=== PATIENT | male | born 1955 | race Caucasian/White ===

== ENCOUNTER 2021-01-25 11:15 | Outpatient (RCR) | payer MEDICARE, OTHER, SELFPAY ==
[2021-01-25] MEDS: COVID-19 VACC, MRNA(PFIZER)/PF 30 MCG/0.3 ML SYRINGE IM (18:38)
[2021-02-15] MEDS: COVID-19 VACC, MRNA(PFIZER)/PF 30 MCG/0.3 ML SYRINGE IM (17:57)
== END 2021-05-01 23:59 ==
LOC: IMMUN 11:15
PROVIDERS: Visit Provider Family Medicine
DX: Z23 Encounter for immunization (principal)
CPT/HCPCS: 0001A; 0002A; 91300

== ENCOUNTER 2021-02-12 11:27 | Observation (INO) | payer MEDICARE, OTHER, SELFPAY ==
[2021-02-12] VITALS (12 sets, daily range): BP systolic 117–154; BP diastolic 63–94; PULSE 53–90; RESP 14–20; TEMP 36.3–36.8; O2SAT 94–100; BMI 25.7; BMI 26.6; BMI 26.7
--- NOTE | 2021-02-12 11:42 | EKG12_ITS ---
Test Reason : NUMB/TINGLING Blood Pressure : / mmHG Vent. Rate : 058 BPM Atrial Rate : 058 BPM P-R Int : 148 ms QRS Dur : 102 ms QT Int : 424 ms P-R-T Axes : 046 006 035 degrees QTc Int : 416 ms Sinus bradycardia Otherwise normal ECG Confirmed by APURVA ANDINO, TRAVON ([id number]), magazine editor SIMBA MILLER ([id number]) on 02/15/2021 12:28:49 PM Referred By: JUNIOR Confirmed By:OBDULIA MIXON MD
--- NOTE | 2021-02-12 11:43 | CT_ITS ---
STUDY: CTA HEAD AND NECK WITH CONTRAST REASON FOR EXAM: Male, 65 years old. Neuro deficit, acute, stroke suspected, R leg weak RADIATION DOSAGE (If Supplied By Facility): CTDIvol = ( 21.52 ) mGy, DLP = ( 712.92 ) mGycm TECHNIQUE: CT angiography was performed with a multi-detector CT scanner. Data acquisition was obtained from the skull base through the vertex following intravenous administration of IV 100mL Isovue-370. MIP images were reconstructed from the axial data set. Post-processing of the angiographic images was performed, with multiplanar reformation and 3D reconstruction. Individualized dose optimization techniques were used for this CT. COMPARISON: No relevant priors. FINDINGS: Normal bilateral petrous carotid arteries. There is calcified plaque formation of the right cavernous carotid artery, without a cross-sectional luminal stenosis. There is calcified plaque formation of the left cavernous carotid artery, without a cross-sectional luminal stenosis. Normal right A1 segments of the anterior cerebral artery. Normal left A1 segments of the anterior cerebral artery. Normal intact anterior communicating artery (ACOM). Normal bilateral A2 segments of the anterior cerebral arteries. Normal right M1 and M2 segments of the middle cerebral arteries, with a normal M1 bifurcation. Normal left M1 and M2 segments of the middle cerebral arteries, with a normal M1 bifurcation. Normal right posterior communicating artery (PCOM). Normal left posterior communicating artery (PCOM). Normal bilateral vertebral arteries. Normal basilar artery with a normal basilar bifurcation. The visualized bilateral superior cerebellar (SCA) arteries are normal. Normal bilateral P1, P2 and visualized P3 segments of the posterior cerebral arteries. There is no demonstrated aneurysm of the [place]. AORTIC ARCH: There is atherosclerotic calcific plaque formation of the aortic arch and great vessels arising from the aortic arch, without a hemodynamically significant stenosis. There is a normal origin of the brachiocephalic, left common carotid, and left subclavian arteries. RIGHT CAROTID ARTERIES: Normal right common carotid artery (CCA). There is mild atherosclerotic plaque formation with minimal narrowing of the right carotid bulb. Normal origin of the right internal carotid (ICA) artery without a hemodynamically significant stenosis. Normal visualized cervical portion of the right internal carotid artery. Normal origin of the right external carotid artery (ECA). LEFT CAROTID ARTERIES: Normal left common carotid artery (CCA). Normal left common carotid bulb. There is minimal atherosclerotic plaque formation of the origin of the left internal carotid artery with less than 50% cross sectional diameter stenosis. Normal visualized cervical portion of the left internal carotid artery. Normal origin of the left external carotid artery (ECA). VERTEBRAL ARTERIES: There is enhancement within the bilateral vertebral arteries with a small right vertebral artery, and a dominant left vertebral artery. CT/STROKE CTA Head AND Neck W/Con IMPRESSION: Minimal plaque at the right carotid bulb and origin of the left internal carotid artery. N.B. : The above information has been verbally conveyed by Scott Claudio MD to Lucio Polancoren on 02/12/2021 13:26:52 (ET). Electronically Signed: Scott Claudio MD at 13:27 EDT , Service support ,
--- NOTE | 2021-02-12 11:49 | ED.VISSUMM ---
- ER Visit Summary Date of Service: 02/12/21 Chief Complaint: Right leg weakness History of Present Illness: The patient is a 65 M who goes to [facility]. He reports that he has weakness in his right leg that began 4 days ago. States that he has been driving it to walk. Is actually off balance and has fallen 3 times. He denies any injury or loss of consciousness. Denies any neck pain. Patient reports that he does not notice some mild weakness in his right arm. He denies any paresthesias. No change in his speech. He denies any vertigo. His review of systems is otherwise negative. Physical Examination: Vitals: Stable. Afebrile. General: Well-nourished and well-developed. Head: Normocephalic atraumatic. Neck: Supple, no lymphadenopathy. No JVD. Nontender. Cardiovascular: Regular rate and rhythm. No murmurs. Respiratory: No respiratory distress. Clear to auscultation bilaterally. Abdominal: Soft, nontender, nondistended, normal bowel sounds. No guarding, rebound, or peritoneal signs. Back: Nontender. Extremities: Nontender, no edema. Skin: Normal color, no rash. Neurologic: Alert and oriented ?3. Cranial nerves II through XII are intact. 4 out of 5 strength right lower extremity. NIH scale is 2. Psych: Normal affect. Test Results: EKG is sinus bradycardia at [address] changes. Troponin 0 0.049. INR is 1.1. Chem-7 shows a BUN 23, creatinine 1.36, glucose 173. CBC shows stable neutrophils 85 lymphocytes of 11. Clinical Impression(s) from Imaging Studies Head/Neck CTA 02/12/21 11:43 IMPRESSION: Minimal plaque at the right carotid bulb and origin of the left internal carotid artery. N.B. : The above information has been verbally conveyed by Scott Claudio MD to Lucio [facility] on 02/12/2021 13:26:52 (ET). Electronically Signed: Scott Claudio MD at 13:27 EDT , Service support , ADDENDUM: 02/12/21 1334 IMPRESSION: Minimal plaque at the right carotid bulb and origin of the left internal carotid artery. N.B. : The above information has been verbally conveyed by Scott Claudio MD to Lucio Marleyfgren on 02/12/2021 13:26:52 (ET). Electronically Signed: Scott Claudio MD at 13:27 EDT , Service support , Brain CT 02/12/21 12:15 IMPRESSION: Small areas of decreased attenuation in the left basal ganglion as well as the body and tail of the left caudate nucleus. I cannot exclude acute change. Correlation with MRI is recommended. N.B. : The above information has been verbally conveyed by Scott Claudio MD to Lucio Jose on 02/12/2021 12:33:45 (ET). Electronically Signed: Scott Claudio MD at 12:35 EDT , Service support , ADDENDUM: 02/12/21 1242 IMPRESSION: Small areas of decreased attenuation in the left basal ganglion as well as the body and tail of the left caudate nucleus. I cannot exclude acute change. Correlation with MRI is recommended. N.B. : The above information has been verbally conveyed by Scott Claudio MD to Lucio Marleyfgren on 02/12/2021 12:33:45 (ET). Electronically Signed: Scott Claudio MD at 12:35 EDT , Service support , Chest X-Ray 02/12/21 12:15 IMPRESSION: No acute abnormality is seen. Electronically Signed: Scott Claudio MD at 12:25 EDT , Service support , Emergency Department Course and Treatment: Patient symptoms began 4 days ago. He is not a TPA candidate. Treatment Plan: Patient was discussed with Dr. White. He will be admitted to the hospital for further evaluation and treatment. Disposition: Admitted in stable condition. Impression: 1. CVA. 2. Renal insufficiency. 3. Indeterminate troponin. 4. Sinus bradycardia. This note was generated with [employer] dictation software. It may contain incorrect words, spelling, and punctuation that were not noted in review of the chart prior to signing ED Disposition - Plan for ED Patient: Referrals: Care Physician,No Primary [Primary Care Provider] -
[2021-02-12] MEDS: 0.9% Normal Saline 1,000 ML 100 ML IV (12:01)
[2021-02-12 12:12] LABS: Absolute Lymphocyte Count 0.89 X10^3/uL (0.83-4.51); Basophil# 0.06 X10^3/uL; Basophil% 0.7 % (0-1); Eosinophil# 0.01 X10^3/uL; Eosinophils% 0.1 % (0-5); Hematocrit 46.8 % (40-54); Hemoglobin 15.9 g/dL (13.0-16.5); Lymphocyte # 0.89 X10^3/ul (4.0); Lymphocyte % 10.9 % (19-41); Mean Corpuscular Volume 85.2 fL (80-94); Mean Platelet Vol. 10.3 fl (6.2-12.0); Monocyte# 0.26 X10^3/uL; Monocyte% 3.2 % (0-10); NRBC Flagged by Analyzer 0 % (0-5); Neutrophil # 6.96 X10^3/uL (2.7-7.7); Neutrophil % 84.9 % (47-70); Platelet Count 273 K/mm3 (150-450); RBC Distribution Width CV 13.2 % (11.6-14.6); RBC Distribution Width SD 40.9 fl (35.1-43.9); Red Blood Count 5.49 M/mm3 (4.6-6.2); White Blood Count 8.2 K/mm3 (4.4-11.0)
--- NOTE | 2021-02-12 12:15 | RAD_ITS ---
STUDY: X-RAY CHEST REASON FOR EXAM: Male, 65 years old. Neuro deficit, acute, stroke suspected TECHNIQUE: Single AP portable view of the chest. COMPARISON: None. FINDINGS: EKG electrodes are seen. The lungs are clear and expanded. There is no demonstrated pleural abnormality. Normal size heart. Normal mediastinum and uzair. Normal visualized pulmonary arteries. There is atherosclerotic tortuosity of the aortic arch and descending thoracic aorta. There are diffuse degenerative changes of the visualized thoracic spine. Normal visualized ribs, clavicles, and shoulders. There is no demonstrated abnormality of the visualized soft tissue structures of the upper abdomen. RAD/Chest 1 View IMPRESSION: No acute abnormality is seen. Electronically Signed: Scott Claudio MD at 12:25 EDT , Service support ,
--- NOTE | 2021-02-12 12:15 | CT_ITS ---
STUDY: CT HEAD STROKE PROTOCOL W/O CONTRAST INJECTION REASON FOR EXAM: Male, 65 years old. STROKE RADIATION DOSAGE (If Supplied By Facility): CTDIvol = ( 44.99 ) mGy, DLP = ( 796.11 ) mGycm TECHNIQUE: Transaxial CT imaging of the brain was performed without administration of intravenous contrast material. Individualized dose optimization techniques were used for this CT. COMPARISON: No relevant priors. FINDINGS: Normal soft tissue structures. Normal calvarium. There is mild cerebral atrophy with widening of the extra-axial spaces and ventricular dilatation. Normal white matter tracts of the cerebral hemispheres. Several areas of decreased attenuation in the left basal ganglion as well as in the tibial portion of the left caudate nucleus. The exact age of the insult cannot be determined on a single examination. Correlation with MRI is recommended. Normal brainstem. Normal cerebellum. There is no intracranial hemorrhage. There are no findings of an acute ischemic infarction. Atherosclerotic calcification of the cavernous portions of the internal carotid arteries bilaterally. Normal visualized paranasal sinuses. CT/STROKE Brain/Head without Cont IMPRESSION: Small areas of decreased attenuation in the left basal ganglion as well as the body and tail of the left caudate nucleus. I cannot exclude acute change. Correlation with MRI is recommended. N.B. : The above information has been verbally conveyed by Scott Claudio MD to Lucio Marleyfgren on 02/12/2021 12:33:45 (ET). Electronically Signed: Scott Claudio MD at 12:35 EDT , Service support ,
[2021-02-12 12:21] LABS: International Normalized Ratio 1.1; Prothrombin Time (Protime)PT. 13.3 SECONDS (11.7-14.9)
[2021-02-12 12:22] LABS: Partial Thromboplast Time 24.6 Seconds (24.1-36.2)
[2021-02-12 12:30] LABS: Anion Gap 8 (5-15); BUN 23 mg/dL (7-18); BUN/Creat Ratio 16.9 RATIO (10-20); Calcium,Total 8.8 mg/dL (8.5-10.1); Chloride 107 mmol/L (98-107); Creatinine, Serum 1.36 mg/dL (0.70-1.30); EST Glomerular Filtration Rate 55 mL/min (>60); Est Glom Filt Rate - Afr Amer 67 mL/min (>60); Estimated Creatinine Clearance 61.28 ml/min; Glucose 173 mg/dL (74-106); Potassium 3.9 mmol/L (3.5-5.1); Sodium Level 139 mmol/L (136-145)
--- NOTE | 2021-02-12 14:23 | ECHOCS_ITS ---
Reason For Study: TIA/CVA Procedure This was a 2D Doppler, Color Flow transthoracic echocardiogram. The study was technically difficult. Contrast injection was performed. Exam performed portable in patient room. Left Ventricle Normal LV size. Mild concentric left ventricular hypertrophy. Left ventricular systolic function is normal. Stage 1 diastolic dysfunction. No regional wall motion abnormalities noted. Right Ventricle Normal RV size. Normal systolic function. Atria Normal left atrium. Normal right atrium. Bubble contrast study negative for right to left interatrial shunt. Mitral Valve Normal mitral valve. Tricuspid Valve Normal tricuspid valve. Aortic Valve Trisinus/trileaflet aortic valve. Mild focal aortic valve calcification. Mild (1+) aortic valve insufficiency. Pulmonic Valve Normal pulmonic valve. Trivial pulmonic valve insufficiency. Great Vessels Mild to moderately dilated aortic root. The pulmonary artery is normal size. Normal inferior vena cava. Pericardium/Pleural No pericardial effusion. Medication Diluted definity 4ml given slow IV push to enhance endocardial definition. Performed a rapid injection of agitated mix of 9 cc saline and 1cc air to assess for atrial septal defect. MMode/2D Measurements & Calculations LVIDd: 4.7 cm IVSd: 1.2 cm Ao root diam: 4.2 cm LVIDs: 3.0 cm LVPWd: 1.1 cm LA dimension: 3.8 cm FS: 35.6 % LAV(MOD-bp): 46.6 ml LA A4 area: 15.6 cm2 RA A4 area: 15.6 cm2 LAV(MOD-bp) Indexed: 21.4 ml/m2 LAV(MOD-sp2): 54.8 ml LAV(MOD-sp4): 38.8 ml Time Measurements MV dec time: 0.34 sec Doppler Measurements & Calculations MV E max bartolo: 60.2 cm/sec Lat Peak E' Bartolo: 9.9 cm/sec Med Peak E' Bartolo: 9.4 cm/sec MV A max bartolo: 69.2 cm/sec E/E' lat: 6.1 E/E' med: 6.4 MV E/A: 0.87 MV V2 max: 70.6 cm/sec MV P1/2t max bartolo: 69.6 cm/sec Ao V2 max: 157.3 cm/sec MV max P.0 mmHg MV P1/2t: 100.0 msec Ao max P.9 mmHg MV V2 mean: 39.1 cm/sec MV dec slope: 203.8 cm/sec2 MV mean P.72 mmHg MV V2 VTI: 29.2 cm MVA(P1/2t): 2.2 cm2 LV V1 max: 101.4 cm/sec PA V2 max: 101.1 cm/sec PI end-d bartolo: 90.5 cm/sec LV V1 max P.1 mmHg Interpretation Summary Normal LV size. Mild concentric left ventricular hypertrophy. Left ventricular systolic function is normal. Stage 1 diastolic dysfunction. Bubble contrast study negative for right to left interatrial shunt. Ordering Physician: Wei White Referring Physician: No PCP Performed By: Alexandru Leyva RCS
--- NOTE | 2021-02-12 14:23 | MRI_ITS ---
STUDY: MRI BRAIN WITHOUT CONTRAST REASON FOR EXAM: Male, 65 years old. Neuro deficit, acute, stroke suspected, R leg weak TECHNIQUE: Standardized multiplanar fat and water weighted pulse sequences were obtained. COMPARISON: Head CT dated February 12, 2021 FINDINGS: Small acute infarct is present in the posterior limb of the left internal capsule extending superiorly into the periventricular white matter. There is mild cerebral atrophy with widening of the extra-axial spaces and ventricular dilatation. There are a limited number of small white matter hyperintensities, distributed throughout the deep white matter tracts of the cerebral hemispheres, consistent with mild chronic white matter ischemic changes. Normal T2* images of the brain without demonstrated susceptibility artifact. There is no demonstrated hemosiderin stain. Normal bilateral basal ganglia. Normal thalami. There is no extra-axial fluid accumulation. Normal flow voids within the major intracranial circulation suggesting patency by spin echo criteria. Normal sella turcica, pituitary gland, infundibular stalk, optic chiasm and hypothalamus. Normal tectal plate and pineal gland. Normal midbrain, clovis and medulla. Normal cerebellum. Normal basal cisterns. Normal bilateral temporal bones. Normal bilateral internal auditory canals. No demonstrated orbital abnormality, within the constraints of a routine brain study. Normal visualized paranasal sinuses. Normal calvarium and skull base. Normal visualized soft tissue structures. Normal visualized upper cervical spine. MRI/Brain without Contrast IMPRESSION: 1. Small acute infarct of the posterior limb of the left internal capsule extending superiorly into the periventricular white matter. Electronically Signed: Hayden Villa MD at 16:33 EDT , Service support ,
[2021-02-12] MEDS: Enoxaparin 40 MG/0.4 ML Syringe SC (15:19)
[2021-02-12] MEDS: Clopidogrel Bisulfate 75 MG Tablet PO (15:19)
--- NOTE | 2021-02-12 18:12 | HP.PCM_ITS ---
Problem List (1) Right leg weakness Status: Acute History of Present Illness Date of Admission: 02/12/21 Chief Complaint: Right leg weakness x5 days The patient is a 65 year old M who was seen in the emergency room at [facility] with a chief complaint of right leg weakness and some right upper extremity weakness since last . Patient was seen in the emergency room at [facility] last Friday for these complaints and was told that he probably had degenerative disc disease of the lumbar spine and he was placed on prednisone and Flexeril, patient continued to have difficulty with right leg weakness and had a hard time picking up his foot while he was walking. He came to the ER at [facility] today for further evaluation. Patient denied any speech difficulties or any visual difficulties and he denied any left-sided weakness. Work-up in the emergency room included labs which revealed a normal CBC, creatinine was slightly elevated at 1.36, BUN was 23, glucose was 173, and troponin was 0.049. Patient underwent imaging studies including a CT of the brain which showed evidence of decreased attenuation in the left basal ganglia and in the body and tail of the left caudate nucleus-a stroke cannot be excluded. Patient's CTA of the head neck was unremarkable. Patient was placed in observation status on PCU for acute stroke, he will undergo an MRI of the brain today, he will be placed on Plavix and aspirin as well as a statin. Patient will be seen by PT and OT and will have an echocardiogram performed. Past Medical History Allergies No Known Allergies Allergy (Verified 02/12/21 11:31) Home Medications: Ambulatory Orders Medication Instructions Recorded Aspirin [Adult Aspirin Regimen] 81 mg PO DAILY 02/12/21 Cetirizine HCl [Zyrtec] 10 mg PO DAILY 02/12/21 Cyclobenzaprine HCl 5 mg PO BID 02/12/21 Omeprazole 20 mg PO DAILY 02/12/21 Prednisone 50 mg PO DAILY 02/12/21 Surgical History: cataract, herniorrhaphy, tonsillectomy Psychiatric History: No pertinent psych hx Lives: Spouse/ Significant Other Smoking Status: Former smoker Tobacco Use: Cigarettes, Cigars, Pipe Alcohol: None Drugs: None - *Family History Maternal History Items: Diabetes Paternal History Items: - - Cirrhosis Review of Systems Constitutional: Denies: Anorexia, Chills, Fever, Night Sweats, Malaise, Weakness, Weight Change, Fatigue Eyes: Denies: Cataracts, Conjunctivae Inflammation, Double vision, Drainage HEENT: Denies: Difficulty Swallowing, Dysphasia, Ear Pain, Eye Pain, Hearing Changes, Nasal bleeding, Nasal Congestion, Post Nasal Drip Cardiovascular: Denies: Chest Pain, Claudication, Chest Pressure, Chest Tightness, Edema, Heaviness, Palpitations Respiratory: Denies: Cough, Hemoptysis, Pleuritic Pain, Shortness of Breath, Shortness of breath at rest, Shortness of breath upon exertion Gastrointestinal: Denies: Abdominal Pain, Constipation, Diarrhea, Hematemesis, Hematochezia, Nausea, Melena, Vomiting Genitourinary: Denies: Dysuria, Frequency, Hematuria, Hesitancy, Urgency Musculoskeletal: Reports: Back Pain - Patient complains of mild low back pain.. Denies: Foot Pain, Hand Pain, Joint Pain, Joint stiffness, Joint swelling, Joint Tenderness, Leg Pain Skin: Denies: Dryness, Jaundice, Pruritis, Rash Neurological: Reports: Focal weakness - Patient complained of right leg weakness as compared with the left, he also complained of some mild right upper extr emity weakness-the symptoms started 5 days ago. Denies: Blurred vision, Double vision, Slurred speech, Difficulty swallowing, Headaches, Numbness, Tingling, Tremor, Seizures Psychiatric: Denies: Anxiety, Depression, Homicidal Ideations, Suicidal Ideations Endocrine: Denies: Change in Body Habitus, Heat/ Cold Intolerance, Polydipsia, Polyuria Hematologic/ Lymphatic: Denies: Adenopathy, Anemia, Easy Bruising, Easy Bleeding, Petechiae, Purpura VTE Information - Inpt Only VTE Present on Admission: No VTE Mechan Device Prophylaxis: None VTE Pharm Prophylaxis ordered?: Yes - Physical Exam Vitals/I&O's: Vital Signs Temp Pulse Resp BP Pulse Ox 98.3 F 56 L 16 138/69 H 100 02/12/21 14:32 02/12/21 15:02 02/12/21 14:32 02/12/21 14:32 02/12/21 14:32 Oxygen Delivery Method Room Air Weight: 94.2 kg Body Mass Index (BMI) 26.6 Intake and Output for Last 24 Hours 02/10/21 02/11/21 02/12/21 23:59 23:59 23:59 Intake Total 570 / 570 Balance 570 / 570 General: Alert, Oriented x3, Cooperative, No apparent distress, Well developed, Well nourished HEENT: Atraumatic, PERRLA, EOMI, Normocephalic Oral: Moist Mucosa Neck: Supple, No JVD, Negative Carotid Bruits, Trachea Midline, Thyroid Normal Size and Texture Lungs: Clear to auscultation, Normal air movement, No rhonchi, No wheeze, No rales Cardiovascular: Regular rate, Regular Rhythm, Normal S1, Normal S2, No murmurs, PMI Normal, No rub noted, No Gallop Abdomen: Bowel Sounds Present, Soft, Non Tender, Non-Distended Extremities: No clubbing, No cyanosis, No edema, Capillary Refill Less than 3 Seconds Skin: No rashes, No breakdown Musculoskeletal: No Tenderness to Palpation of Joints or Extremities Neurological: Cranial nerves II-XII grossly intact, Neuro grossly intact, Sensory exam intact to light touch and pain, Coordination normal, - - Patient had some mild weakness in his right leg, there was also some slight weakness in his right arm noted on examination Psych/Mental Status: Normal Affect, Appropriate, Alert and oriented to time, place, person, mood and affect Laboratory Results 02/12/21 11:55: WBC 8.2, RBC 5.49, Hgb 15.9, Hct 46.8, MCV 85.2, MCH 29.0, MCHC 34.0, RDW Std Deviation 40.9, RDW Coeff of Melissa 13.2, Plt Count 273, MPV 10.3, Immature Gran % (Auto) 0.200, Neut % (Auto) 84.9 H, Lymph % (Auto) 10.9 L, [place] % (Auto) 3.2, Eos % (Auto) 0.1, Baso % (Auto) 0.7, Absolute Neuts (auto) 7.0, Absolute Lymphs (auto) 0.89, Nucleated RBC % 0 02/12/21 11:55: PT 13.3, INR 1.1, APTT 24.6 02/12/21 11:55: Sodium 139, Potassium 3.9, Chloride 107, Carbon Dioxide 24.0, Anion Gap 8, BUN 23 H, Creatinine 1.36 H, Estim Creat Clear Calc 61.28, Est GFR (MDRD) Af Amer 67, Est GFR (MDRD) Non-Af 55 L, BUN/Creatinine Ratio 16.9, Glucose 173 H, Calcium 8.8, Troponin I 0.049 H Current Medications Aspirin (Aspirin 81 Mg Tab.Chew) 81 mg PO DAILY@0800 BRIAN Atorvastatin Calcium (Atorvastatin Calcium 80 Mg Tablet) 80 mg PO QHS [facility] Clopidogrel Bisulfate (Clopidogrel Bisulfate 75 Mg Tablet) 75 mg PO DAILY [facility] Enoxaparin Sodium (Enoxaparin 40 Mg/0.4 Ml Syringe) 40 mg SC DAILY@0600 BRIAN Hydralazine HCl (Hydralazine 20 Mg/Ml Vial) 5 mg IV Q30M PRN PRN Reason: to maintain BP goals Sodium Chloride () 1,000 mls @ 100 mls/hr IV .Q10H ONE Stop: 02/12/21 21:41 Last Infusion: 02/12/21 15:19 Dose: Infused Documented by: Labetalol HCl (Labetalol (Prefilled) 20 Mg/4 Ml) 10 - 20 mg IV Q10M PRN PRN PRN Reason: to Maintain BP Goals Pantoprazole Sodium (Pantoprazole Sodium 20 Mg Tablet) 20 mg PO DAILY [facility] Sodium Chloride (0.9% Saline Lock 10 Ml Syringe) 10 - 40 ml IV UD PRN PRN Reason: SALINE FLUSH Assessment/Plan All Active Problems Right leg weakness (Acute) #1 left basal ganglion ischemic infarction-patient was placed in observation status on PCU, he will be placed on Plavix and aspirin as well as a statin. Patient will have an echocardiogram performed and he will be seen by PT and OT. Finally, patient will have an MRI of the brain without contrast ordered. Labs will be repeated in the morning. #2 elevated creatinine-etiology unclear, patient does not have any other renal functions in his medical record here to compare it with. We will repeat his labs tomorrow #3 mildly elevated blood sugar-patient's labs will be repeated in the morning OBSV E&M: [id number] Initial observation care L3
[2021-02-12] MEDS: Atorvastatin Calcium 80 MG Tablet PO (20:31)
[2021-02-13] VITALS (7 sets, daily range): BP systolic 122–131; BP diastolic 59–72; PULSE 50–55; RESP 14–18; TEMP 36.4–36.6; O2SAT 93–99
[2021-02-13] MEDS: Enoxaparin 40 MG/0.4 ML Syringe SC (05:38)
[2021-02-13 06:51] LABS: Anion Gap 6 (5-15); BUN 22 mg/dL (7-18); BUN/Creat Ratio 17.9 RATIO (10-20); Calcium,Total 8.8 mg/dL (8.5-10.1); Chloride 107 mmol/L (98-107); Cholesterol 239 mg/dL (200); Creatinine, Serum 1.23 mg/dL (0.70-1.30); EST Glomerular Filtration Rate 62 mL/min (>60); Est Glom Filt Rate - Afr Amer 75 mL/min (>60); Estimated Creatinine Clearance 67.76 ml/min; Glucose 91 mg/dL (74-106); High Density Lipoprotein 36 mg/dL; Potassium 3.9 mmol/L (3.5-5.1); Sodium Level 140 mmol/L (136-145); Triglycerides 147 mg/dL; Very Low Density Lipoprotein 29 mg/dL (5-40)
[2021-02-13] MEDS: Clopidogrel Bisulfate 75 MG Tablet PO (08:38)
[2021-02-13] MEDS: Aspirin 81 MG TAB.CHEW PO (08:38)
[2021-02-13] MEDS: Pantoprazole Sodium 20 MG Tablet PO (08:38)
--- NOTE | 2021-02-13 10:23 | DCINST_ITS ---
- Discharge Diagnoses Current Active Problems: Current Active and Chronic Problems Right leg weakness (Acute) You will use the following diet at home:: No restrictions Your food should be the consistency of: Regular Your liquids should be the consistency of: Regular/Thin Discharge Activity: Return to Normal Activity Weight Bearing Status: Full weight bearing Additional Instructions: Avoid taking Aleve or Ibuprofen for pain, Tylenol is safe to take Allergies/Adverse Reactions: Allergies No Known Allergies Allergy (Verified 02/12/21 11:31) Medications to take at Discharge Aspirin [Adult Aspirin Regimen] 81 mg PO DAILY 02/12/21 Cetirizine HCl [Zyrtec] 10 mg PO DAILY 02/12/21 Omeprazole 20 mg PO DAILY 02/12/21 Atorvastatin Calcium [Lipitor] 80 mg PO QHS #30 tablet 02/13/21 Clopidogrel Bisulfate [Plavix] 75 mg PO DAILY #30 tablet 02/13/21 The following prescriptions were given: Atorvastatin Calcium [Lipitor] 80 mg PO QHS #30 tablet Transmission Status: Received by [address] Clopidogrel Bisulfate [Plavix] 75 mg PO DAILY #30 tablet Transmission Status: Received by [address] Primary Care Physician: Care Physician,No Primary [Primary Care Provider] - Please follow up with your Primary Care Physician in: in 2 weeks Test Results: Test results from this visit will be discussed in further detail at your follow- up appointment, if applicable.
--- NOTE | 2021-02-13 11:52 | CASEMGMT ---
SW completed a PHQ 9 with patient as he had a Stroke. He scored a 0 which indicates no depression. Patient denies any need for any counseling resources. Cara CANNON
--- NOTE | 2021-02-13 13:10 | CASEMGMT ---
Therapy is recommending that patient go to Rehab. ALDAIR met with patient to discuss his discharge plan. He said he does not want to go anywhere for rehab. He has to get home as he has things he needs to take care of or he will lose out on money and his building that is being delivered. ALDAIR told him it is up to him, but if therapy is recommending he go somewhere they must really feel like it is necessary. He is aware, but is politely declining. He asked if he went home and it didn't work out could he go somewhere. ALDAIR told him he could come back to ED or talk with his PCP. He said if he gets a walker he thinks he will be fine. ALDAIR explained his options for therapy including home health and outpatient. ALDAIR explained he has to be home bound for home health and explained what that means. He said he would like outpatient if he can get evening appts. ALDAIR told him they will call him to set up appts. ALDAIR notified physician and RN CM. Caar CANNON
--- NOTE | 2021-02-13 13:20 | CASEMGMT ---
Therapy is recommending rehab/SNF but pt is only agreeable to OP therapy and WW at this time per Ananth QUINTEROS. Pt states he would like [facility] as they can deliver prior to discharge. Script obtained for OP therapy at [facility] and faxed to [facility] with facesheet. Script [place] [facility] and Barbara at [facility] notified of WW, voices understanding. Pt voices no further questions/concerns/needs. Krystyna LEVY CM
--- NOTE | 2021-02-13 14:04 | PHA.DC.MC ---
Pharmacy Service has performed discharge medication reconciliation and counseling for this patient. 1. ATORVASTATIN 80MG PO QHS 2. CLOPIDOGREL 75MG PO DAILY The patient's discharge medication list was reviewed for discrepancies and discrepancies were resolved. Home Medications Aspirin [Adult Aspirin Regimen] 81 mg PO DAILY 02/12/21 Cetirizine HCl [Zyrtec] 10 mg PO DAILY 02/12/21 Omeprazole 20 mg PO DAILY 02/12/21 Atorvastatin Calcium [Lipitor] 80 mg PO QHS #30 tablet 02/13/21 Clopidogrel Bisulfate [Plavix] 75 mg PO DAILY #30 tablet 02/13/21 The patient was counseled on the following discharge medications and changes in medications for homegoing were reviewed. The Reason for Use, instructions for use, and potential side effects were reviewed for all new medications. The patient's questions regarding all of their medications were answered. The patient was able to verbally demonstrate an understanding of their discharge medications.
--- NOTE | 2021-02-15 08:57 | PCM.DC.SUM ---
Discharge Date and Diagnosis - Problem List Patient Problems: Active and Suspected Problems Right leg weakness (Acute) Date of Admission: 02/12/21 Date of Discharge: 02/13/21 - Primary Discharge Diagnosis Acute Problems: Active Problems #1 acute ischemic stroke posterior limb of the left internal capsule #2 GERD Hospital Course and Treatment Procedures: 2-D Echocardiogram Summary of Care Provided: The patient is a 65 year old M seen in the emergency room at [facility] with a chief complaint of right leg weakness. He had been seen several days earlier at an emergency room at a local hospital and he was told that he had degenerative disc disease with nerve impingement affecting his right leg although no imaging studies were performed. Patient was placed on prednisone and a muscle relaxer but he continued to have right leg weakness and trouble walking. Work-up in the emergency room included a CT of the brain which showed a small area of decreased attenuation left basal ganglia and the body and tail of the left caudate nucleus. Patient's CTA of his head and neck was unremarkable for significant occlusive disease, lab was remarkable for an elevated creatinine of 1.36, troponin was 0.049. Patient was placed in observation status on PCU, he was seen by PT and OT, he had echocardiogram performed which showed no evidence of a PFO, there was also no evidence of thrombus noted on the echo. Patient had an MRI of the brain which showed no acute infarct of the posterior limb of the left internal capsule. It was recommended by physical therapy that the patient undergo inpatient rehab services at an a rehab unit or [facility] facility but the patient refused the suggestion and instead requested outpatient physical therapy. On 02/13/2021, patient was seen and examined: On examination he appeared in good health and spirits. Vital signs as documented. Skin warm and dry and without overt rashes. Neck without JVD, neck was supple, trachea midline, thyroid was normal. Lungs clear bilaterally, normal air movement was noted. Heart exam notable for regular rhythm, normal sounds and absence of murmurs, rubs or gallops. Abdomen unremarkable and without evidence of organomegaly, masses, or abdominal aortic enlargement. Bowel sounds are present, abdomen is not distended. Extremities nonedematous, no cyanosis was noted, no clubbing was noted. Neuro: Cranial nerves II through XII are grossly intact, there was weakness noted in the patient's right leg with difficulty ambulating without assistance, sensation to light touch and pinprick intact. Psych: Patient is alert and oriented x3, he does not appear anxious or depressed, he does not appear agitated. Patient had been taking an aspirin 81 mg daily at home, he was kept on this medication with the addition of Plavix 75 mg. He was also placed on a statin. Patient's creatinine decreased during his hospital stay. Patient was discharged on 02/13/2021 in stable condition with instructions to follow-up with his PCP regarding his medications. I suggested that the patient stay on Plavix and aspirin for at least a year due to the fact that he had a stroke while taking aspirin. Patient was given a prescription for a wheeled walker and physical therapy at the time of discharge. Patient Problems: Active and Suspected Problems Right leg weakness (Acute) - Physical Exam Vitals/I&O's: Vital Signs Temp Pulse Resp BP Pulse Ox 97.7 F L 55 L 18 131/59 H 99 02/13/21 12:24 02/13/21 12:24 02/13/21 12:24 02/13/21 12:24 02/13/21 12:24 Oxygen Delivery Method Room Air Weight: 94.2 kg Body Mass Index (BMI) 26.6 Intake and Output for Last 24 Hours 02/13/21 02/14/21 02/15/21 23:59 23:59 23:59 Intake Total 740 / 740 Balance 740 / 740 Discharge Activity: Return to Normal Activity Weight Bearing Status: Full weight bearing Home Medications: Medications to take at Discharge Aspirin [Adult Aspirin Regimen] 81 mg PO DAILY 02/12/21 Cetirizine HCl [Zyrtec] 10 mg PO DAILY 02/12/21 Omeprazole 20 mg PO DAILY 02/12/21 Atorvastatin Calcium [Lipitor] 80 mg PO QHS #30 tablet 02/13/21 Clopidogrel Bisulfate [Plavix] 75 mg PO DAILY #30 tablet 02/13/21 Following Prescriptions Were Given to Patient: Atorvastatin Calcium [Lipitor] 80 mg PO QHS #30 tablet Transmission Status: Received by [address] Clopidogrel Bisulfate [Plavix] 75 mg PO DAILY #30 tablet Transmission Status: Received by [address] Primary Care Physician: Care Physician,No Primary [Primary Care Provider] - Please follow up with your Primary Care Physician in: in 2 weeks Disposition: Home Minutes spent on discharge:: 30 Patient Condition:: Stable Medical Necessity - Tobacco Use Smoking Status: Former smoker Tobacco Use: Cigarettes, Cigars, Pipe Meaningful Use Info Meaningful Use Diagnoses (Choose all that apply): Ischemic CVA - CVA Therapy Assessed for PT,OT and/or ST?: Yes - Ischemic Stroke Antithrombotic order at d/c?: Yes Dx of Atrial fib/flutter?: No Anticoagulant at discharge?: No Reason anticoagulant not ordered: Treatment not Indicated Statins at discharge?: Yes Primary Dx Acute Ischemic CVA?: Yes IV tPA ordered during stay?: No Reason IV t-PA not ordered: Treatment not Indicated OBSV E&M: 55591 Observation care discharge
== END 2021-02-13 12:23 | disposition home or self-care (01) ==
LOC: ED 11:56 → PCU 14:05
PROVIDERS: Admitting Provider Internal Medicine; Emergency Provider Emergency Medicine; Visit Provider Internal Medicine
DX: I67.82 Cerebral ischemia (principal); K21.9 Gastro-esophageal reflux disease without esophagitis; R53.1 Weakness; R29.702 NIHSS score 2; R00.1 Bradycardia, unspecified; N28.9 Disorder of kidney and ureter, unspecified; R73.9 Hyperglycemia, unspecified; Z79.899 Other long term (current) drug therapy; Z79.82 Long term (current) use of aspirin; Z79.52 Long term (current) use of systemic steroids; Z87.891 Personal history of nicotine dependence
CPT/HCPCS: 36415; 70450; 70496; 70498; 70551; 71045; 80048; 80061; 84484; 85025; 85610; 85730; 93005; 93306; 96360; 96361; 96372; 97162; 97166; 99218; 99285; J7030; Q9957; Q9967; A4216; C8929; G0378

== ENCOUNTER 2021-02-28 10:51 | Outpatient (RCR) | payer MEDICARE, OTHER, SELFPAY ==
[2021-02-12 14:30] VITALS: BMI 26.6
--- NOTE | 2021-02-28 11:57 | HP.OTEVAL_ITS ---
Patient's Visit Information LIOR JOSÉ is a 65 year old M, referred to Occupational Therapy by Dr. Wei White DO, with a diagnosis of CVA. Date of Evaluation: 02/28/21 Occupational Therapist: KISHORE Quintero/Asmita, CHT - Subjective This 65 year old male was seen for OT eval with dx of CVA.(02/12/21) pt states on february 08 he had a little numbness in his right leg on . on friday he couldnt walk and went to [facility]- pt states he was sent home with (nerve in back) pt states he continued with symptoms and sat. and went to ER at [facility] on a Friday02/12/21 and was d/c 02/13/21 with dx of CVA. pt states he did have more difficulty with motor movements but has worked hard and has noticed greater control and use of right UE and LE. pt states he has a weak feeling. pt is right handed and feels weakness at times. pt would like to have better balance and stop using the quad cane. - ADLs Comments: pt lives with and two cats. Pt states he has 4 entry without handrail. pt states bedroom/bathroom is on 1st floor. pt states he has a tub shower. Pt has shower chair and quad cane. pt states he does take of the yard (city [place]) pt does garden. pt states he feels his UB has returned to his baseline- would like more balance and right leg strength. - ROM Shoulder: right shoulder flex 150* limited from childhood injury ROM Comments: pt demo full ROM of left UE. and functional ROM of right shoulder flex - Strength Shoulder: right 4+/5 left 4+/5 Elbow: right 4+/5 left 4+/5 Forearm: right 4+/5 left 4+/5 Extension Course Counselor: right 90# left 80# Lateral Pinch: right 24# left 25# Tripod Pinch: right 24# left 24# Tip-to-Tip Pinch: right 20# left 22# - Nine Hole Peg Right: 21.5 Left: 24.1 - In-Hand Manipulation Finger to Palm Translation: Normal - Right, Normal - Left Palm to Finger Translation: Normal - Right, Normal - Left Shift: Normal - Right, Normal - Left Rotation: Normal - Right, Normal - Left - Stroke Specific Quality of Life Total SS-QOL Score: 221 - Quick DASH-Disab of Arm,Shoulder& Hand Quick DASH Score: 4.5450 - Rehabilitation General Assessment: Pt reports right UE has returned to his baseline- pt does not demo a need for OT services at this time. Pt will have eval by PT to determin pts POC. - Visit Plan TEXT: Thank you for the opportunity to evaluate your patient. For Medicare and Medicare HMO plans, please review the plan of care and approve it. It will need to be FAXED BACK to us at [phone] for Medicare purposes. Please let me know if there are questions or concerns regarding this plan of care. Physician Signature: Date:
--- NOTE | 2021-02-28 11:57 | HP.OTDCSUM ---
It has been my pleasure to treat LIOR JOSÉ under orders from Dr. Wei White DO, for the diagnosis of CVA for a total of 1 visit(s). Please see the following information for a summary of their discharge status. Objective/Function: pt reports his UE has retured to baseline but will cont. with PT for balance and ambulation. If there are questions or concerns regarding this patient's occupational therapy, please fell free to call me at [phone]. Thank you for the referral of this patient. Sincerely, Delaney Cantrell, OTR/L, CHT
--- NOTE | 2021-02-28 15:41 | HP.PTEVAL_ITS ---
Patient's Visit Information LIOR JOSÉ is a 65 year old M referred to Physical Therapy by Dr. Wei White DO with a diagnosis of Acute CVA. Date of Evaluation: 02/28/21 Physical Therapist: Dae Weathers DPT - Visit Plan Frequency: 1x/Week Duration: 4-6 Weeks Plan: Start with DF strengthening, increased walking program and LE strengthening. - Subjective Pt. is here today for his initial evaluation with diagnosis of acute CVA. Pt. re ports having increased RLE weakness with having a CVA on February 12. He was originially diagnosis of low back pain with radiculopthay, but went to another ER a few days later and was diagnosed with a CVA. Pt. reports he has been home for a few weeks now. He has been doing more and more ADLs and IADLs as the days have been progressing. Pt. denies N/T in RLE, sometimes feels a bit heavy. Pt. reports he is back to driving as well. No visual changes, no EDDY. Pt. has been using a cane, but has been progressing away from AD. Pt. is hopeful to get back to all recreational activities including gardending and working on cars. - Objective POSTURE: PALPATION: normal thorughout. No pain with BLEs palpation. No atraphy noted. NEURO: PT. has normal sensation throughout BLEs. Pt. has 2+ achilles and patellar DTR of BLEs. Pt. has normal babinski bilat. ROM: Pt. has good ROM of Bilateral knees, hips and lumbar spine. pt. pain or issues. Pt. has slight tightness with B HS, but not limiting. Pt. has tightness in bilateral calves (DF R 10deg, LLE 14deg.). MMT: RLE- ankle- DF 4+/5, PF 5/5; knee- ext 5/5, flexion 5/5. Hip: flexion 4+/5 abd 4+/5, ext 4+/5. LLE- 5/5 throughout. Core strength- fair-. GAIT: Pt. ambulates without AD. He does have decreased R foot clearance during gait often catching his R foot on the floor. Pt. is able to correct with VCing then improved afterwards. Pt. did have occassional regression. Stairs: Pt. is able to negotiate with normal pattern, reciprocally without issues and 1 HR. - Balance Scores Functional Gait Assessment Score: 19 % Disability: 36.6700 CATSIB Score (Max score 120 seconds): 105 - Goals Goal 1:: LTG: PT. to be I with HEP for R ankle and LE strengthening. Goal Time Frame: 4-6 Weeks Goal 2:: LTG: Pt. to ambulate without AD with normal gait pattern and no LOB for unlmited distances. Goal Time Frame: 4-6 Weeks Goal 3:: LTG: Pt. have increased RLE strength to full throughout. Goal Time Frame: 4-6 Weeks Goal 4:: LTG: Pt. to have increased score on FGA to 24/30 indicating reduced risk for future falls. Goal Time Frame: 4-6 Weeks - Rehabilitation Potential Physical Therapy Diagnosis: Pt. has signs and symptoms consistent with CVA with R sided LE weakness. Pt. is overall doing very well. He reports he has been improving since injury. He is right with some RLE weakness and his greatest issue is with R ankle Df. He has decent strength, but with walking he has limited R foot clearance effecting his gait. Pt. would benefig from PT to increase RLE strength, focus on R DF allowing for increased safety with gait. Rehabilitation Potential: Excellent - Anticipated Interventions Patient/Client Instruction: Educate patient on: Condition, Plan of Care, Risk Factors, Benefits of Fitness Program For the Purpose of:: To foster healthy habits, To improve decision making, To facilitate caregiver knowledge, To improve self management, To prevent re- injury, To improve ability to perform tasks related to life management Therapeutic Exercise to Include: Strength training, Power training, Balance training, Postural training, Flexibilty training, Gait and locomotor training, Active ROM For the Purpose of:: To increase ROM, To improve nutrient delivery to tissue, To increase oxygenation perfusion, To improve muscle performance and motor f unction, To improve ability to perform ADL's Thank you for the opportunity to evaluate your patient. For Medicare and Medicare HMO plans, please review the plan of care and approve it. It will need to be FAXED BACK to us at [phone] for Medicare purposes. For Medicare only, by signing this I certify the plan of care. Please let me know if there are questions or concerns regarding this plan of care. Physician Signature: Date:
== END 2021-02-28 19:00 | disposition home or self-care (01) ==
LOC: OT 10:51
PROVIDERS: Referring Provider Internal Medicine; Visit Provider Internal Medicine
DX: Z86.73 Personal history of transient ischemic attack (TIA), and cerebral infarction without residual deficits (principal)
CPT/HCPCS: 97161; 97166

== ENCOUNTER → 2024-06-21 | Outpatient (CLI) | payer MEDICARE, OTHER, SELFPAY ==
--- NOTE | 2024-06-21 08:45 | MRI_ITS ---
STUDY: MRI RIGHT ANKLE WITHOUT CONTRAST REASON FOR EXAM: Male, 69 years old. GENERALIZED POSTERIOR PAIN X 5 MONTHS TECHNIQUE: Standardized fat and water weighted pulse sequences were obtained in all 3 orthogonal planes. COMPARISON: None. FINDINGS: There is a nondisplaced oblique fracture of the distal fibula, with adjacent marrow edema (sagittal STIR series 10 images 5-8). There is mild subcutaneous soft tissue edema along the medial and lateral aspects of the ankle. Normal posterior tibialis tendon. Normal flexor digitorum longus tendon. Normal flexor hallucis longus tendon. Normal peroneus longus and brevis tendons. Normal tibialis anterior tendon. Normal extensor hallucis longus tendon. Normal extensor digitorum longus tendons. There is minimal increased intrasubstance signal along the anterior aspect of the distal Achilles tendon (sagittal STIR series 10 images 14-15), suggestive of minimal tendinosis. There is no Achilles tendon tendon tear. Normal plantar fascia. There are small plantar and posterior calcaneal spurs. Normal intrinsic muscles of the rearfoot. Normal distal tibiofibular syndesmotic ligamentous complex. Normal lateral ligamentous complex. Normal subtalar ligaments and sinus tarsi. Normal deltoid ligamentous complex. Normal plantar calcaneonavicular (spring) ligament. Normal tibiotalar articulation. Normal talar dome. Normal subtalar articulations. Normal talonavicular articulation. Normal calcaneocuboid articulation. Normal navicular-cuneiform articulations. MRI/Lower Ext Joint Only (Routine) IMPRESSION: Nondisplaced oblique fracture of the distal fibula, with adjacent marrow edema. Minimal distal Achilles tendinosis. No Achilles tendon tear. Small plantar and posterior calcaneal spurs. Mild subcutaneous soft tissue edema along the medial and lateral aspects of the ankle. Electronically Signed: Luc Johnson MD at 14:34 EDT ,
== END | disposition home or self-care (01) ==
LOC: MRI 08:08
PROVIDERS: Referring Provider Podiatrist; Visit Provider Podiatrist
DX: M25.571 Pain in right ankle and joints of right foot (principal); M19.071 Primary osteoarthritis, right ankle and foot; S82.61XA Displaced fracture of lateral malleolus of right fibula, initial encounter for closed fracture; X58.XXXA Exposure to other specified factors, initial encounter
CPT/HCPCS: 73721

== ENCOUNTER 2025-05-11 19:11 | Emergency (ER) | payer OTHER, MEDICARE, SELFPAY ==
[2025-05-11 19:12] VITALS: BP 138/67; PULSE 80; RESP 16; TEMP 36.8; O2SAT 98; BMI 26.0
[2025-05-11 19:31] VITALS: BP 114/68; PULSE 79; RESP 15; O2SAT 95
--- NOTE | 2025-05-11 20:09 | CT_ITS ---
PROCEDURE: BRAIN/HEAD WITHOUT CONTRAST 05/11/2025 REASON FOR EXAM: TRAUMA TECHNIQUE: BRAIN/HEAD WITHOUT CONTRAST Coronal and Sagittal reconstruction series were provided. One or more dose reduction techniques were used (e.g., Automated exposure control, adjustment of the mA and/or kV according to patient size, use of iterative reconstruction technique. FINDINGS: There is no intracranial hemorrhage. The bony calvarium appears intact. There is chronic hypodensity in the right leigh radiata from prior ischemia. : CT/Brain/Head without Contrast IMPRESSION: No acute abnormality Reading Location[facility]
--- NOTE | 2025-05-11 20:09 | CT_ITS ---
PROCEDURE: CHEST WITH CONTRAST 05/11/2025 REASON FOR EXAM: TRAUMA TECHNIQUE: CHEST WITH CONTRAST Coronal and Sagittal reconstruction series were provided. CONTRAST: Isovue 370 VOLUME: 92 mL One or more dose reduction techniques were used (e.g., Automated exposure control, adjustment of the mA and/or kV according to patient size, use of iterative reconstruction technique). RADIATION DOSE SUMMARY: DLP: 1678.17 MGycm COMPARISON: None. FINDINGS: The peripheral soft tissues are unremarkable. Chronic healing right rib fractures. Degenerative changes of the spine. The thyroid is unremarkable. Moderate hiatal hernia. Hepatic subcentimeter hypodense lesions are too small to characterize. Mild atherosclerosis. Normal caliber thoracic aorta. Coronary artery calcifications are present. Cardiomegaly. No pulmonary artery filling defects. No significant mediastinal lymphadenopathy. Left lower lobe [address]/Chest WITH Contrast IMPRESSION: Coronary artery calcification (CAC) is present No acute chest abnormality. Left lower lobe 5 mm pulmonary nodule. No follow up recommended in a low risk patient. 1 year follow-up CT recommended in a high-risk patient. Cardiomegaly. Reading Location: [place] [id number]
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
[2025-05-11 20:31] VITALS: BP 154/74; PULSE 73; RESP 18; O2SAT 96
[2025-05-11 21:00] VITALS: BP 122/74; PULSE 68; RESP 19; O2SAT 95
[2025-05-11 21:28] LABS: Anion Gap 11 (5-15); BUN 16 mg/dL (4-19); BUN/Creat Ratio 11.9 RATIO (10-20); Calcium,Total 9.2 mg/dL (7.6-11.0); Carbon Dioxide 22.9 mmol/L (21.0-32.0); Chloride 108 mmol/L (98-108); Creatinine, Serum 1.33 mg/dL (0.70-1.20); EST Glomerular Filtration Rate 57 (>60); Estimated Creatinine Clearance 56.74 ml/min (50-250); Glucose 160 mg/dL (70-99); Potassium 4.2 mmol/L (3.3-5.1); Sodium Level 142 mmol/L (133-145)
[2025-05-11 21:41] VITALS: BP 134/72; PULSE 69; RESP 19; TEMP 36.8; O2SAT 96
== END 2025-05-11 21:54 | disposition home or self-care (01) ==
PROVIDERS: Emergency Provider Emergency Medicine; PCP Internal Medicine; Visit Provider Emergency Medicine
DX: S20.20XA Contusion of thorax, unspecified, initial encounter (principal); R91.1 Solitary pulmonary nodule; Z87.891 Personal history of nicotine dependence; E78.00 Pure hypercholesterolemia, unspecified; V43.52XA Car driver injured in collision with other type car in traffic accident, initial encounter; Z79.01 Long term (current) use of anticoagulants; Z86.73 Personal history of transient ischemic attack (TIA), and cerebral infarction without residual deficits
CPT/HCPCS: 70450; 71260; 80048; 99282; Q9967; A4216